=== PATIENT | female | born 1955 | race Caucasian/White ===

== ENCOUNTER → 2017-01-22 | Outpatient (CLI) | payer OTHER | LOC: CIMAGING 07:52 | PROVIDERS: ATTEND Internal Medicine | DX: Z12.31 Encounter for screening mammogram for malignant neoplasm of breast (principal) | CPT/HCPCS: G0202 ==

== ENCOUNTER → 2017-01-29 | Outpatient (CLI) | payer OTHER | LOC: CIMAGING 13:38 | PROVIDERS: ATTEND Internal Medicine | DX: N60.01 Solitary cyst of right breast (principal) | CPT/HCPCS: 76641-PO ==

== ENCOUNTER → 2017-03-06 | Outpatient (CLI) | payer OTHER | LOC: BRMIMAGING 14:41 | PROVIDERS: ATTEND Internal Medicine | DX: R05 Cough (principal); I51.7 Cardiomegaly | CPT/HCPCS: 71020-PO ==

== ENCOUNTER → 2017-03-16 | Outpatient (CLI) | payer OTHER ==
[~2017-03-16] MED LIST: BUPIVACAINE 0.5% 10 ML SDV ONE; LIDO/EPI 1% **Not for Epidural 20 ML MDV ONE; LIDOCAINE 1% 300 MG/30 ML SDV ONE; THROMBIN (BOVINE) 5,000 UNIT VIAL TP ONE
== END ==
LOC: FIMAGING 07:09
PROVIDERS: ATTEND Radiology Diagnostic Radiology
PROC: BH40ZZZ Ultrasonography of Right Breast (ICD-10-PCS; principal; 2017-03-16)
PROC: 0HBT3ZX Excision of Right Breast, Percutaneous Approach, Diagnostic (ICD-10-PCS; principal; 2017-03-16)
DX: N60.91 Unspecified benign mammary dysplasia of right breast (principal); N60.11 Diffuse cystic mastopathy of right breast

== ENCOUNTER → 2017-05-22 | Outpatient (CLI) | payer OTHER ==
[~2017-05-22] MED LIST changes: -BUPIVACAINE 0.5% 10 ML SDV ONE; +GADOBUTROL 10 ML VIAL IVP ONE; -LIDO/EPI 1% **Not for Epidural 20 ML MDV ONE; -LIDOCAINE 1% 300 MG/30 ML SDV ONE; -THROMBIN (BOVINE) 5,000 UNIT VIAL TP ONE
== END ==
LOC: FIMAGING 12:19
PROVIDERS: ATTEND Internal Medicine Hematology & Oncology
DX: D05.01 Lobular carcinoma in situ of right breast (principal); R92.8 Other abnormal and inconclusive findings on diagnostic imaging of breast
CPT/HCPCS: 0159T; 77059; A9585; C8908

== ENCOUNTER → 2017-06-11 | Outpatient (CLI) | payer OTHER | LOC: BRMIMAGING 08:37 | PROVIDERS: ATTEND Internal Medicine Hematology & Oncology | DX: R92.8 Other abnormal and inconclusive findings on diagnostic imaging of breast (principal); N60.01 Solitary cyst of right breast; Z86.000 Personal history of in-situ neoplasm of breast | CPT/HCPCS: 76641-PO ==

== ENCOUNTER → 2017-07-31 | Outpatient (CLI) | payer OTHER ==
[~2017-07-31] MED LIST changes: +BUPIVACAINE 0.25% 30 ML SDV ONE; +LIDOCAINE 1% 300 MG/30 ML SDV ONE; +LIDOCAINE 1% 5 ML SDV ONE; +NA BICARBONATE 50 MEQ/50 ML VIAL ONE
== END ==
LOC: FIMAGING 07:18
PROVIDERS: ATTEND Surgery
DX: D05.01 Lobular carcinoma in situ of right breast (principal); R92.8 Other abnormal and inconclusive findings on diagnostic imaging of breast
CPT/HCPCS: A9585

== ENCOUNTER → 2017-07-31 | Outpatient (CLI) | payer OTHER | LOC: FIMAGING 13:28 | PROVIDERS: ATTEND Surgery | DX: R09.02 Hypoxemia (principal) ==

== ENCOUNTER → 2017-09-18 | Day surgery (SDC) | payer OTHER ==
[~2017-09-18] MED LIST changes: -BUPIVACAINE 0.25% 30 ML SDV ONE
== END | disposition still patient (30) ==
LOC: FIMAGING 07:21
PROVIDERS: ATTEND Surgery
DX: R92.0 Mammographic microcalcification found on diagnostic imaging of breast (principal)
CPT/HCPCS: A9585

== ENCOUNTER → 2017-11-06 | Outpatient (CLI) | payer OTHER ==
[~2017-11-06] MED LIST changes: -GADOBUTROL 10 ML VIAL IVP ONE; +IOPAMIDOL (ISOVUE 370) 100 ML BTL IV ONE; -LIDOCAINE 1% 300 MG/30 ML SDV ONE; -LIDOCAINE 1% 5 ML SDV ONE; -NA BICARBONATE 50 MEQ/50 ML VIAL ONE
== END ==
LOC: CIMAGING 08:12
PROVIDERS: ATTEND Internal Medicine Critical Care Medicine
DX: R09.02 Hypoxemia (principal); J98.11 Atelectasis; R91.8 Other nonspecific abnormal finding of lung field; R16.0 Hepatomegaly, not elsewhere classified; G47.33 Obstructive sleep apnea (adult) (pediatric); Z98.890 Other specified postprocedural states
CPT/HCPCS: 71275-PO; Q9967

== ENCOUNTER → 2018-03-09 | Outpatient (CLI) | payer OTHER | LOC: FIMAGING 12:44 | PROVIDERS: ATTEND Internal Medicine Critical Care Medicine | DX: R09.02 Hypoxemia (principal); G47.30 Sleep apnea, unspecified ==

== ENCOUNTER → 2018-11-19 | Outpatient (CLI) | payer OTHER | LOC: BRMIMAGING 09:04 | PROVIDERS: ATTEND Internal Medicine Hematology & Oncology | DX: N63.20 Unspecified lump in the left breast, unspecified quadrant (principal); D05.12 Intraductal carcinoma in situ of left breast; D05.00 Lobular carcinoma in situ of unspecified breast; Z17.0 Estrogen receptor positive status [ER+]; Z85.3 Personal history of malignant neoplasm of breast | CPT/HCPCS: 76641-PO ==

== ENCOUNTER → 2018-12-08 | Outpatient (CLI) | payer OTHER | LOC: FIMAGING 07:07 ==